=== PATIENT | female | born 1975 | race Caucasian/White ===

== ENCOUNTER 2017-11-21 18:27 | Emergency (ER) | payer SELFPAY ==
[2017-11-21 18:28] VITALS: BP 155/85; PULSE 87; RESP 16; TEMP 36.8; O2SAT 97; BMI 26.6
--- NOTE | 2017-11-21 18:39 | ED.DCSUM_ITS ---
- ER Visit Summary Date of Service: 11/21/17 Chief Complaint: 42-year-old presents with 36 days of vaginal bleeding. She states that she was previously very regular but did have heavy menstrual periods never lasting longer than 6 days. She had a seemingly normal menstrual period 36 days ago but it has never resolved. She states that until a week ago it did improve markedly but never completely resolved. She has no pelvic pain at all and no lower back pain or urinary symptoms. No abdominal pain, weakness , lightheadedness, or other systemic symptoms. Denies previous similar symptoms. 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 Has any history of bleeding disorder. Physical Examination: Those are within normal limits. She does not appear pale. She is not in distress. Neck is supple. Heart tones are regular and without murmur. Lungs are clear bilaterally. Abdomen is soft and nontender. No flank tenderness. Normal cap refill. No rash. No petechiae. Test Results: HCG. Hemoglobin normal. Platelets normal. Emergency Department Course and Treatment: Labs unremarkable. Not anemic. Cervix closed on my female pit boss exam. No significant bleeding, only mild active bleeding. No clots. I discussed the case with Dr. Kamara who recommended progestin 5 mg 3 times daily with close follow-up at his office. Treatment Plan: Follow-up with INDUSTRIAL CONVEYOR BELT REPAIRER as soon as possible Disposition: Home stable condition Impression: Encounter abnormal vaginal bleeding This note was generated with [employer] dictation software. It may contain incorrect words, spelling, and punctuation that were not noted in review of the chart prior to signing ED Disposition - Plan for ED Patient: Chief Complaint: Vag Bleeding Instructions: ED Bleed Irregular Vaginal Referrals: Carlton Kamara MD [STAFF PHYSICIAN] - As soon as possible
[2017-11-21 18:54] LABS: Absolute Lymphocyte Count 2.87 X10^3/ul (0.83-4.51); Absolute Neutrophil Count 5.2 X10^3/uL (2.0-7.7); Basophil# 0.07 X10^3/uL; Basophil% 0.8 % (0-1); Eosinophil# 0.56 X10^3/uL; Eosinophils% 6.1 % (0-5); Hematocrit 37.8 % (37-47); Hemoglobin 12.8 g/dl (12.0-15.0); Lymphocyte # 2.87 X10^3/ul (4.0); Lymphocyte % 31.2 % (19-41); Mean Corp Hgb Conc 33.9 g/gl (32-36); Mean Corpuscular Hgb 31.1 pg (27.0-32.0); Mean Corpuscular Volume 91.7 fL (81-99); Mean Platelet Vol. 9.3 fl (6.2-12.0); Monocyte# 0.52 X10^3/uL; Monocyte% 5.7 % (0-10); Neutrophil # 5.17 X10^3/uL (2.7-7.7); Neutrophil % 56.1 % (47-70); Platelet Count 327 K/mm3 (150-450); RBC Distribution Width CV 13.4 % (11.6-14.6); RBC Distribution Width SD 44.7 fl (35.1-43.9); Red Blood Count 4.12 M/mm3 (4.2-5.4); White Blood Count 9.2 K/mm3 (4.4-11.0)
[2017-11-21 18:58] LABS: POSITIVE COUNT NO; POSITIVE DIFFERENTIAL NO; POSITIVE MORPHOLOGY NO
[2017-11-21 19:38] LABS: Pregnancy, Serum, hCG Quali. NEGATIVE Negative (0-9 Nonpreg)
[2017-11-21 20:12] VITALS: BP 128/81; PULSE 74; O2SAT 98
== END 2017-11-21 20:13 | disposition home or self-care (01) ==
PROVIDERS: Emergency Provider Emergency Medicine; Family Provider Physician Assistant; PCP Physician Assistant
DX: N93.9 Abnormal uterine and vaginal bleeding, unspecified (principal); I10 Essential (primary) hypertension
CPT/HCPCS: 84703; 85025; 99282

== ENCOUNTER 2019-02-03 10:01 | Emergency (ER) | payer SELFPAY ==
[2019-02-03 10:03] VITALS: BP 158/86; PULSE 89; RESP 16; TEMP 36.7; O2SAT 100; BMI 26.6
--- NOTE | 2019-02-03 10:23 | CT_ITS ---
STUDY: CT FACIAL BONES WITHOUT CONTRAST REASON FOR EXAM: Female, 43 years old. Left-sided facial swelling. RADIATION DOSAGE (If Supplied By Facility): CTDIvol = ( 29.38 ) mGy, DLP = ( 525.42 ) mGycm TECHNIQUE: The patient was scanned in a multi detector CT scanner. Sagittal and coronal images were reconstructed. Individualized dose optimization techniques were used for this CT. COMPARISON: None. FINDINGS: There is diffuse inhomogeneous enlargement of the left parotid gland. Small lymph nodes are seen in the posterior cervical region more prominent on the left side. Normal orbital red and orbital contents. Normal nasal bones and anterior nasal spine. Normal facial bones. There is no demonstrated fracture. Normal visualized paranasal sinuses. CT/Sinus/Facial Bone IMPRESSION: Diffuse inhomogeneous enlargement of the left parotid gland with evidence of bilateral cervical lymph nodes more prominent on the left side. An inflammatory process should be ruled. Electronically Signed: Alirio Cole, at 10:58 EDT , Service support ,
--- NOTE | 2019-02-03 10:27 | ED.VISSUMM ---
- ER Visit Summary Date of Service: 02/03/19 Chief Complaint: Facial swelling History of Present Illness: The patient is a 43 F who presents with left facial swelling that began this morning. Patient states she woke up and noted some swelling of her face. Patient states this got worse when she was eating breakfast. Patient describes the pain is dull. Patient states the swelling is over the left cheek and jaw area. Patient states nothing seemed to help it. Patient denies any fevers or chills. Patient denies any sore throat, difficulty swallowing, or difficulty breathing. Patient denies any chest pain. Patient denies any nausea or vomiting. Patient states she feels some pressure in her left ear like it needs to pop. Patient denies any ear pain however. Patient denies any changes in her hearing. Physical Examination: Vital signs are stable. Patient is afebrile. Patient is in no acute distress. Oral mucosa is pink and moist. Oropharynx is clear. Tympanic membranes are clear bilaterally. There is some tenderness and edema of the left parotid gland. Neck is supple. Trachea is midline. There is no JVD noted. Heart was regular rate and rhythm. Lungs are clear and equal bilaterally. Cranial nerves II through XII are intact. There are no focal motor or sensory deficits noted. Test Results: CT scan of the face and sinuses was obtained. There is enlargement of the left parotid gland with bilateral cervical lymph nodes that are more prominent on the left. Emergency Department Course and Treatment: Patient was advised of her results. Patient was advised that this is most likely a viral etiology. Patient was instructed to take Tylenol or ibuprofen as needed for any pain. Patient was instructed to follow-up with her primary care physician in 5 to 7 days for reevaluation. Patient understood and was agreeable with the plan. All questions were answered. Disposition: Discharge home Impression: 1. Left parotitis This note was generated with [employer] dictation software. It may contain incorrect words, spelling, and punctuation that were not noted in review of the chart prior to signing ED Disposition - Plan for ED Patient: Disposition: Home or Assisted Living Diagnosis: Parotitis Instructions: SALIVARY GLAND SWELLING, Unk Cause Referrals: NOT,DEFINED [NON-STAFF] - 5-7 Days
[2019-02-03 11:25] VITALS: BP 113/62; PULSE 71; RESP 15; O2SAT 98
== END 2019-02-03 11:28 | disposition home or self-care (01) ==
PROVIDERS: Emergency Provider Emergency Medicine; Family Provider Physician Assistant; PCP Physician Assistant
DX: K11.20 Sialoadenitis, unspecified (principal); I10 Essential (primary) hypertension; Z72.0 Tobacco use
CPT/HCPCS: 70486; 99282

== ENCOUNTER 2021-07-22 04:20 | Emergency (ER) | payer SELFPAY ==
[2021-07-22 04:21] VITALS: BP 169/86; PULSE 109; RESP 16; TEMP 36.1; O2SAT 96; BMI 33.7
--- NOTE | 2021-07-22 04:38 | EX.ED.VIS.EY ---
HPI History of Present Illness Chief Complaint: Eye Problem Narrative Narrative: Patient is a 46-year-old female who states she was around a bunch of children just 1 to 2 days ago. She states she awoke this morning with left eye redness irritation and discharge. She denies any trauma or change in vision. She denies any contact lens use. She states she is concerned she has pinkeye and secondary to this presents for evaluation. PFSH PFS Medical History no medical history Home Medications lisinopril [Prinivil] 5 mg PO DAILY 08/26/16 [History Last Taken 12/01/16] neomycin-polymyxin B-dexameth [Maxitrol] 2 drp LEFT EYE .qid 10 Days #5 ml 07/22/21 [Rx Last Taken Unknown] Allergy/AdvReac Type Severity Reaction Status Date / Time rifampin Allergy Itching Verified 07/22/21 04:24 Social History Smoking Status: Current some day smoker tobacco type: cigarettes ROS ROS ED Constitutional Constitutional ED: Denies chills or fever(s) Eyes Eyes: Reports other Details: Positive eye redness and discharge on left ; Denies blurry vision or change in vision ENT ENT ED: Denies sore throat Cardiovascular Cardiovascular: Denies chest pain Respiratory/Chest Respiratory/Chest: Denies cough or dyspnea Gastrointestinal Gastrointestinal: Denies abdominal pain, diarrhea, nausea or vomiting Genitourinary Genitourinary ED: Denies dysuria Musculoskeletal Musculoskeletal: Denies myalgias Integumentary Denies rash Neurologic Neurologic: Denies headache(s) Hematologic/Lymphatic Hematologic/Lymphatic: Denies easy bleeding or easy bruising EXAM Physical Exam Const Vital Signs: 07/22/21 04:21 Temperature 96.9 F L Temperature Source Temporal Pulse Rate 109 H Respiratory Rate 16 Blood Pressure 169/86 H Blood Pressure Mean 113 Pulse Ox 96 Oxygen Delivery Method Room Air Positive well nourished and well developed General Appearance ED: well developed HEENT Reports moist mucous membranes Eyes PERRL and EOMs intact bilaterally Eyes Narrative: Pupils are equal reactive to light and accommodation extraocular muscles are intact. There is scleral injection noted to the left with conjunctival fullness and mild discharge present. No retained foreign body or obvious corneal abrasion. Neck supple Resp normal respiratory effort and clear to auscultation bilaterally Cardio regular rate and regular rhythm GI non-tender and non-distended Auscultation: normoactive bowel sounds Palpation: soft Extremity normal to inspection Neuro oriented x3 and CN's II-XII intact bilaterally Sensorium / Orientation: alert Psych mental status grossly normal Skin no rashes or lesions noted Lesions: no lesions Rashes: no rashes MDM MDM MDM Narrative Medical decision making narrative: Patient presented to the ER with no report or signs of trauma. She does not wear contact lens use. She does have scleral injection with conjunctival fullness and discharge concerning for viral versus bacterial conjunctivitis. At this time I will place her on Maxitrol eyedrops to cover for possible bacterial infection because of her exposure to young children but as there is no obvious signs of systemic infection or globe injury she is safe for discharge. Discharge Plan Triage Chief Complaint: Eye Problem ED Provider: Ino Tracey Dx/Rx/DC Orders Clinical Impression: Conjunctivitis Instructions: ED Conjunctivitis, Nonspecific Prescriptions: New neomycin-polymyxin B-dexameth [Maxitrol] 3.5mg/mL-10,000 unit/mL-0.1 % drops,suspension 2 drp LEFT EYE .qid 10 Days Qty: 5 RF: 0 No Action lisinopril [Prinivil] 5 MG tablet 5 mg PO DAILY RF: 0 Primary Care Provider: Jacob Lujan Referrals: Jacob Lujan, PA [Primary Care Provider] - Disposition Disposition: Home, Self Care
[2021-07-22] MEDS: Neomycin/Polymyxin/Dexameth 5ML OPTH.BTL 2 DRP LEFT EYE (04:56)
== END 2021-07-22 04:57 | disposition home or self-care (01) ==
PROVIDERS: Emergency Provider Emergency Medicine; PCP Physician Assistant; Visit Provider Emergency Medicine
DX: H10.9 Unspecified conjunctivitis (principal); F17.210 Nicotine dependence, cigarettes, uncomplicated
CPT/HCPCS: 99283

== ENCOUNTER 2023-04-23 08:29 | Emergency (ER) | payer MEDICAID, SELFPAY ==
[2023-04-23 08:30] VITALS: BP 147/92; PULSE 96; RESP 14; TEMP 36.7; O2SAT 100; BMI 29.9
--- NOTE | 2023-04-23 09:04 | ED.VIS.FEGU ---
HPI HPI - Female History of Present Illness Chief Complaint: Vag Bleeding Bleeding Issue: Positive for Vaginal bleeding and Passing clots Onset: Days (16) Timing: Continuous Current Severity: Heavy Maximum Severity: Heavy Associated Symptoms Associated Symptoms: Negative for Dysuria or Frequency Narrative Narrative: Patient presents with vaginal bleeding for the past 16 days. Patient states she has been passing some clots at times. Patient states it has been constant for the past 16 days. Patient admits to some occasional intermittent cramping. Patient denies any nausea or vomiting. Patient denies any dysuria or hematuria. Patient denies any abnormal vaginal discharge. Patient states nothing makes it better and nothing makes it worse. Patient states she does not currently see a acoustical tile patternmaker. [facility] Medical History (Updated 04/23/23 @ 10:[address] Sami Liang DO) Hypertension Tobacco use disorder Home Medications lisinopril 5 mg tablet (Prinivil) 5 mg PO DAILY 08/26/16 [History Last Taken 12/01/16] bpknniik-ggynhlmge-awsztmar 3.5 mg/mL-10,000 unit/mL-0.1% eye drops (Maxitrol) 2 drp LEFT EYE .qid 10 days #5 mL 07/22/21 [Rx Last Taken Unknown] norethindrone acetate 5 mg tablet 5 mg PO DAILY 5 days #5 tabs 04/23/23 [Rx Last Taken Unknown] Allergy/AdvReac Type Severity Reaction Status Date / Time rifampin Allergy Itching Verified 04/23/23 08:31 Surgical History no surgical history no surgical history Social History Smoking Status: Current some day smoker tobacco type: cigarettes ROS ROS ED Constitutional Constitutional ED: Denies chills or fever(s) Eyes Eyes: Denies blurry vision or change in vision ENT ENT ED: Denies rhinorrhea or sore throat Cardiovascular Cardiovascular: Denies chest pain or palpitations Respiratory/Chest Respiratory/Chest: Denies cough or dyspnea Gastrointestinal Gastrointestinal: Denies nausea or vomiting Genitourinary Genitourinary ED: Denies dysuria or hematuria Musculoskeletal Musculoskeletal: Denies back pain or neck pain Integumentary Denies abscess or rash Neurologic Neurologic: Denies headache(s) or weakness Allergic/Immunologic Allergic/Immunologic ED: Denies mouth swelling or urticaria EXAM Physical Exam Const Vital Signs: 10/16/23 08:30 Temperature 98.1 F Temperature Source Temporal Pulse Rate 96 Respiratory Rate 14 Blood Pressure 147/92 H Blood Pressure Mean 110 Pulse Ox 100 Oxygen Delivery Method Room Air Positive well nourished and well developed General Appearance ED: well developed and NAD HEENT Reports moist mucous membranes Neck supple and no JVD Resp normal respiratory effort and clear to auscultation bilaterally Cardio regular rate and regular rhythm GI soft to palpation, non-tender and non-distended Extremity full ROM Neuro oriented x3, CN's II-XII intact bilaterally and no sensory deficits noted Sensorium / Orientation: alert Motor Exam: strength 5/5 throughout Psych mental status grossly normal MDM MDM MDM Narrative Medical decision making narrative: Differential diagnosis includes anemia, coagulopathy, uterine fibroid, uterine cancer, , and menorrhagia. CBC will be obtained to assess for anemia and leukocytosis. Basic metabolic profile will be obtained to assess for electrolyte abnormality and renal function. Serum hCG will be obtained to assess for . PT with INR and PTT will be obtained to assess for coagulopathy. CT scan of the abdomen pelvis will be came to assess for uterine mass. Lab Data Attestation: I reviewed the patient's lab results. Lab results narrative: BolickCBC was reviewed and was within normal limits. Profile was reviewed. Glucose was elevated to 85. Anion gap was normal. Electrolytes were normal. PT with INR and PTT were reviewed and were within normal limits. Serum hCG was reviewed and was negative. Labs: Laboratory Results - last 24 hr 04/23/23 09:10 WBC 10.1 RBC 4.80 Hgb 14.8 Hct 43.5 MCV 90.6 MCH 30.8 MCHC 34.0 RDW Std Deviation 41.2 RDW Coeff of Inez 12.4 Plt Count 351 MPV 9.5 Immature Gran % (Auto) 0.400 Neut % (Auto) 69.6 Lymph % (Auto) 21.1 [place] % (Auto) 5.1 Eos % (Auto) 2.8 Baso % (Auto) 1.0 Absolute Neuts (auto) 7.0 Absolute Lymphs (auto) 2.13 Nucleated RBC % 0 PT 12.2 INR 0.9 APTT 25.5 Sodium 133 L Potassium 4.3 Chloride 102 Carbon Dioxide 26.0 Anion Gap 5 BUN 16 Creatinine 0.72 Estim Creat Clear Calc 86.92 Est GFR (MDRD) Af Amer 111 Est GFR (MDRD) Non-Af 92 BUN/Creatinine Ratio 22.1 H Glucose 285 H Calcium 9.0 Serum , Qual NEGATIVE Radiography Diagnostic Testing: Clinical Impression(s) from Imaging Studies Abdomen/Pelvis CT 04/23/23 09:11 IMPRESSION: 1. Hepatomegaly. 2. No focal acute inflammatory process. Electronically Signed: Carter Hernandez MD at 10:01 EDT , CT scan of the abdomen and pelvis was obtained. There is no acute abnormality noted. There are no uterine fibroids or uterine mass. This was interpreted by the radiologist and was also independently reviewed by myself. Treatment and Re-Evaluation Narrative: Smoking cessation was discussed. Patient was advised of her findings. Patient is feeling better on reevaluation. Patient was given a prescription for a short course of Aygestin. Patient was instructed to follow-up with AIR MOTOR REPAIRER in 5 to 7 days. Patient was instructed return if worse in any way. Patient understood and was agreeable with the plan. All questions were answered. Discharge Plan Triage Chief Complaint: Vag Bleeding ED Provider: Sami Liang Dx/Rx/DC Orders Clinical Impression: Menorrhagia, Tobacco use disorder Instructions: ED Heavy Menstrual Bleeding Prescriptions: New norethindrone acetate 5 mg tablet 5 mg PO DAILY 5 Days Qty: 5 0RF No Action lisinopril [Prinivil] 5 MG tablet 5 mg PO DAILY neomycin-polymyxin B-dexameth [Maxitrol] 3.5mg/mL-10,000 unit/mL-0.1 % drops,suspension 2 drp LEFT EYE .qid 10 Days Qty: 5 0RF Primary Care Provider: Care Physician,No Primary Referrals: Shantel Sorenson DO [Med Staff - Active Staff] - 5-7 Days Stoney Quinn MD [Med Staff - Active Staff] - 5-7 Days Jacob Lujan PA [Non-Staff] - 5-7 Days Disposition Disposition: Home, Self Care
--- NOTE | 2023-04-23 09:11 | CT_ITS ---
INDICATION: Pelvic pain EXAMINATION: CT ABDOMEN AND PELVIS WITHOUT CONTRAST - CT Abdomen And Pelvis W/O Contrast Injection TECHNIQUE: Helically acquired images were obtained of the abdomen and pelvis without oral or IV contrast. A radiation dose optimization technique was used for this scan. IV Contrast dosage and agent: None. Oral contrast: None. RADIATION DOSAGE (If Supplied By Facility): CTDIvol = ( 12.34 ) mGy, DLP = ( 601.29 ) mGycm COMPARISON: No relevant prior comparison study available FINDINGS: LOWER CHEST: Lung bases are clear. No cardiomegaly or pericardial effusion. LIVER: Hepatomegaly. Focal lesion is seen on this exam without contrast. GALLBLADDER AND BILIARY TREE: No calcified gallstones. No gallbladder distension or wall edema. No intra- or extrahepatic biliary ductal dilation. PANCREAS: No focal cystic or solid mass. SPLEEN: Normal size without focal cystic or solid mass. ADRENAL GLANDS: No nodules. KIDNEYS AND URETERS: Normal renal size and position. No hydronephrosis. PERITONEUM: No ascites or free air. No other fluid collection. BOWEL: No evidence of acute appendicitis. No stomach or bowel distension. No focal inflammatory change. LYMPH NODES: No enlarged mesenteric or retroperitoneal lymph nodes. VESSELS: Aorta is non-dilated. URINARY BLADDER: Unremarkable. REPRODUCTIVE ORGANS: No pelvic masses. Tampon is seen in the cervix. ABDOMINAL WALL: Small umbilical hernia containing fat. BONES: No lytic or blastic abnormality. CT/Abdomen/Pelvis without Cont IMPRESSION: 1. Hepatomegaly. 2. No focal acute inflammatory process. Electronically Signed: Carter Hernandez MD at 10:01 EDT ,
[2023-04-23 09:21] LABS: Absolute Lymphocyte Count 2.13 X10^3/uL (0.83-4.51); Eosinophil# 0.28 X10^3/uL; Eosinophils% 2.8 % (0-5); Hematocrit 43.5 % (37-47); Hemoglobin 14.8 g/dL (12.0-15.0); Lymphocyte # 2.13 X10^3/ul (0.83-4.51); Lymphocyte % 21.1 % (19-41); Mean Corpuscular Hgb 30.8 pg (27.0-32.0); Mean Corpuscular Volume 90.6 fL (81-99); Mean Platelet Vol. 9.5 fl (6.2-12.0); Monocyte# 0.51 X10^3/uL; Monocyte% 5.1 % (0-10); NRBC Flagged by Analyzer 0 % (0-5); Neutrophil # 7.02 X10^3/uL (2.7-7.7); Neutrophil % 69.6 % (47-70); Platelet Count 351 K/mm3 (150-450); RBC Distribution Width CV 12.4 % (11.6-14.6); RBC Distribution Width SD 41.2 fl (35.1-43.9); White Blood Count 10.1 K/mm3 (4.4-11.0)
[2023-04-23 09:23] LABS: Internal QC Validated? YES +Cl - CLEAR BKGD; Pregnancy, Serum, hCG Quali. NEGATIVE Negative
[2023-04-23 09:27] LABS: Anion Gap 5 (5-15); BUN 16 mg/dL (7-18); BUN/Creat Ratio 22.1 RATIO (10-20); Chloride 102 mmol/L (98-107); Creatinine, Serum 0.72 mg/dL (0.55-1.02); EST Glomerular Filtration Rate 92 mL/min (>60); Est Glom Filt Rate - Afr Amer 111 mL/min (>60); Estimated Creatinine Clearance 86.92 ml/min; Glucose 285 mg/dL (74-106); Potassium 4.3 mmol/L (3.5-5.1); Sodium Level 133 mmol/L (136-145)
[2023-04-23 09:28] LABS: International Normalized Ratio 0.9; Prothrombin Time (Protime)PT. 12.2 SECONDS (11.7-14.9)
[2023-04-23 09:29] LABS: Partial Thromboplast Time 25.5 Seconds (24.1-36.2)
[2023-04-23 10:32] VITALS: RESP 16
== END 2023-04-23 10:34 | disposition home or self-care (01) ==
PROVIDERS: Emergency Provider Emergency Medicine; Visit Provider Emergency Medicine
DX: N92.0 Excessive and frequent menstruation with regular cycle (principal); F17.210 Nicotine dependence, cigarettes, uncomplicated
CPT/HCPCS: 74176; 80048; 84703; 85025; 85610; 85730; 99283; A4216

== ENCOUNTER → 2023-04-30 | Outpatient (CLI) | payer MEDICAID, SELFPAY ==
--- NOTE | 2023-04-30 12:05 | EMB_PTH ---
PATIENT: NEDRA LIZARRAGA LOC: [facility] U#:[id number] AGE/SX: 47/F ROOM: RE04/30/[address]: SHEYLA Fraga : 1975 BED: DIS: 04/30/2023 SPEC #: [id number] RECD: 04/30/23 15:16 STATUS: HARPAL LUIS #: [id number] DEEJAY: 04/30/23 12:[address]: Ne Jacobson NP DEPT: SURGICAL PATHOLOGY RECD BY: Yesika Fontenot ENTERED: 05/01/23 08:47 SP TYPE: ENDOM BX/C GARRETT DR: No Primary Care Phys Tissues: Endometrium, NOS Procedures: Surgery Specimen Level IV HEADER OPERATION: Endometrial biopsy PRE-OP DIAGNOSIS: Abnormal uterine bleeding TISSUE SUBMITTED: Endometrial tissue MICROSCOPIC DIAGNOSIS Endometrium, biopsy: Simple hyperplasia without atypia in background of dyssynchronous endometrium. Focal benign stromal hyperplasia suggestive of exogenous hormone effect and with focal breakdown. Rare strips of benign squamous mucosa. AM:marissa 05/02/2023 COMMENT Case has been reviewed in consultation with Dr. Logan who concurs with the above diagnosis. IDC:BELINDA MICROSCOPIC DESCRIPTION Slides are reviewed. GROSS DESCRIPTION Received is one container labeled with the patient's name and not further designated. The specimen consists of multiple irregular fragments of pink soft tissue that in aggregate measure 3.0 x 2.5 x 0.3 cm. The specimen is totally submitted in one cassette. / BELINDA:marissa 05/01/2023 TC:5 CPT: 58965
[2023-05-04 12:08] LABS: HPV APTIMA, High Risk Negative (Negative)
== END | disposition home or self-care (01) ==
PROVIDERS: Referring Provider Nurse Practitioner Women's Health; Visit Provider Nurse Practitioner Women's Health
DX: N93.9 Abnormal uterine and vaginal bleeding, unspecified (principal); Z12.4 Encounter for screening for malignant neoplasm of cervix
CPT/HCPCS: 87624; 88175; 88305; G0145

== ENCOUNTER → 2023-05-08 | Outpatient (CLI) | payer MEDICAID, SELFPAY ==
--- NOTE | 2023-05-08 08:01 | US_ITS ---
STUDY: ULTRASOUND OF THE FEMALE PELVIS - COMPLETE REASON FOR EXAM: Female, 47 years old. Bleeding LMP: April 11, 2023. TECHNIQUE: Transabdominal and Transvaginal TECHNICAL QUALITY: Adequate. COMPARISON: None. FINDINGS: The uterus is anteverted and is in a midline position. The uterus measures 9.3 cm x 6.4 cm x 5.7 cm. Normal uterine cervix. The endometrium measures 11.7 mm in thickness, and is fluid distended. Findings suggestive of a 1.2 cm x 0.7 cm x 0.8 cm polyp. Increased vascularity is seen. Heterogeneous appearance of the myometrium although no focal fibroids are seen. I.U.D. - The patient does not have an I.U.D. The right ovary is visualized. The right ovary measures 2.2 cm x 1.6 x 1.5 cm. There is no right ovarian cyst or ovarian mass. There is no visualized right adnexal mass or complex lesion. There is normal arterial and normal venous vascularity. The left ovary is visualized. The left ovary measures 2.9 cm x 1.9 cm x 2.5 cm. There is no left ovarian cyst or ovarian mass. There is no visualized left adnexal mass or complex lesion. There is normal arterial and normal venous vascularity. There is no fluid in the cul-de-sac. The pre void volume of the bladder was 126 ml. US/Pelvic (Non ) IMPRESSION: Fluid distention of the endometrium with possible polyp. Heterogeneous appearance of the myometrium with no focal fibroid seen. Electronically Signed: Alirio Cole MD at 14:20 EDT ,
== END | disposition home or self-care (01) ==
PROVIDERS: Referring Provider Nurse Practitioner Women's Health; Visit Provider Nurse Practitioner Women's Health
DX: N92.0 Excessive and frequent menstruation with regular cycle (principal)
CPT/HCPCS: 76830; 76856

== ENCOUNTER 2023-07-31 08:21 | Day surgery (SDC) | payer MEDICAID, SELFPAY ==
--- OUTSIDE RECORDS SUMMARY | 2023-07-31 08:52 | XMS RPT_ITS | CCD ---
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 Medications Current Medications Medication Drug Class(es) Dates Sig (Normalized) Sig (Original) amoxicillin 875 mg oral tablet (1 source) Penicillin-class Antibacterial Start: 05-17-2023 End: 05-27-2023 take 1 tablet by mouth twice daily amoxicillin (AMOXIL) 875 mg tablet Take 1 tablet by mouth two times a day for 10 days. 20 tablet 0 05/17/2023 05/27/2023 Active Completed/Discontinued Medications Medication Drug Class(es) Dates Sig (Normalized) Sig (Original) benzonatate 100 mg oral capsule (3 sources) Non-narcotic Antitussive Start: 04-27-2022 take 1 capsule by mouth every eight hours as needed benzonatate (TESSALON PERLES) 100 mg capsule Take 1 capsule by mouth three times daily as needed for cough. 21 capsule 0 04/27/2022 Active Problems Active Problems Problem Classification Problem Date Documented Da te Episodic/Chronic Administrative/social admission (1 source) Repeated prescription; Translations: [Encounter for issue of repeat prescription] Episodic Disorders of teeth and jaw (1 source) Toothache; Translations: [Other specified disorders of teeth and supporting structures] 05-17-2023 Episodic Essential hypertension (4 sources) Essential hypertension; Translations: [Essential (primary) hypertension] Onset: 09-15-2016 09-15-2016 Chronic Immunizations and screening for infectious disease (1 source) Contact with or exposure to other viral diseases; Translations: [Exposure to COVID-19 virus] Episodic Other lower respiratory disease (1 source) Cough; Translations: [Acute cough] Episodic Other upper respiratory infections (1 source) Acute upper respiratory infection; Translations: [Acute upper respiratory infection, unspecified] Episodic Past or Other Problems Problem Classification Problem Date Documented Da te Episodic/Chronic Diabetes mellitus without complication (4 sources) Hyperglycemia; Translations: [Hyperglycemia, unspecified] Onset: 11-29-2017 11-29-2017 Episodic Results Test Name Value Interpretation Reference Range Facil ity Vital Signs Date Time Vital Sign Value Performing Clinician Faci lity 05-17-2023 11:59-0500 Body temperature 98.01 [degF] Nikky Athy PA-C Work Phone: [facility] 05-17-2023 11:59-0500 Body weight 85.46 kg Nikky Athy PA-C Work Phone: [facility] 05-17-2023 11:59-0500 Diastolic blood pressure 80 mm[Hg] Nikky Athy PA-C Work Phone: [facility] 05-17-2023 11:59-0500 Heart rate 96 /min Nikky Athy PA-C Work Phone: [facility] 05-17-2023 11:59-0500 Respiratory rate 16 /min Nikky Athy PA-C Work Phone: [facility] 05-17-2023 11:59-0500 SaO2% (BldA) [Mass fraction] 98 % Nikky Athy PA-C Work Phone: [facility] 05-17-2023 11:59-0500 Systolic blood pressure 138 mm[Hg] Nikky Athy PA-C Work Phone: [facility] 04-27-2022 12:42-0400 Body temperature 98.6 [degF] Ora Anderson MANAGER [employer].MANAGER ELECTRICAL Work Phone: [facility] 04-27-2022 12:42-0400 Body weight 83.28 kg Ora Anderson MANAGER [employer].MANAGER ELECTRICAL Work Phone: [facility] 04-27-2022 12:42-0400 Diastolic blood pressure 84 mm[Hg] Ora Anderson MANAGER [employer].MANAGER ELECTRICAL Work Phone: [facility] 04-27-2022 12:42-0400 Heart rate 118 /min Ora Anderson MANAGER [employer].MANAGER ELECTRICAL Work Phone: [facility] 04-27-2022 12:42-0400 Respiratory rate 18 /min Oraadryan Anderson MANAGER [employer].MANAGER ELECTRICAL Work Phone: [facility] 04-27-2022 12:42-0400 SaO2% (BldA) [Mass fraction] 98 % Ora Anderson MANAGER [employer].MANAGER ELECTRICAL Work Phone: [facility] 04-27-2022 12:42-0400 Systolic blood pressure 142 mm[Hg] Ora Anderson MANAGER [employer].MANAGER ELECTRICAL Work Phone: [facility] Encounters Encounter Date Encounter Type Care Provider Facility Start: 06-25-2023 End: 06-25-2023 ambulatory Facility:[facility] Start: 05-17-2023 End: 05-17-2023 ambulatory Facility:[facility] Start: 05-17-2023 End: 05-17-2023 Patient encounter procedure Nikky Lr PA-C Work Phone: [facility] Procedures Date Procedure Procedure Detail Performing Clinician Start: 10-28-2016 Lipid 1996 panel - S ene or Plasma Nikky Lr PA-C Work Phone: Start: 09-15-2016 Adult depression screening assessment Yaa Hreman APRN.MANAGER ELECTRICAL Work Phone: Plan of Treatment Date Care Activity Detail Author Start: 11-01-2026 Urine microalbumin profile [facility] Start: 03-09-2023 Influenza vaccination Influenza Vaccine (#1) [facility] Start: 11-27-2022 HPV TESTING HPV TESTING [facility] Start: 11-27-2022 PAP TESTING PAP TESTING [facility] Start: 10-06-2022 BP CONTROLLED (<130/80) BP CONTROLLED (<130/80) [facility] in Start: 07-09-2022 Depression Assessment Depression Assessment [facility] Start: 04-27-2022 End: 05-11-2022 Influenza virus A and B RNA and SARS-CoV-2 (COVID-19) N gene panel - Respiratory specimen by DAYLIN with probe detection COVID WITH FLUA+B, ROUTINE Microbiology Routine Acute cough Exposure to COVID-19 virus Expected: 04/27/2022, Expires: 05/11/2022 [facility] Work Phone: Immunizations Immunization Date Immunization Notes Care Provider Giorgi benitez 11-01-2016 pneumococcal polysaccharide vaccine, 23 valent Ora Anderson MANAGER [employer].MANAGER ELECTRICAL Work Phone: [facility] Work Phone: 11-01-2016 tetanus toxoid, redu divya diphtheria toxoid, and acellular pertussis vaccine, adsorbed Yaa Herman MANAGER [employer].MANAGER [employer]LECTRICAL Work Phone: [facility] Work Phone: Payers Date Payer Category Payer Medicaid [id number] 2021 Medicaid [facility] MEDICA[facility] [id number] 2021-Present [phone] [address] [place] [address] Medicaid [id number] 2021 Medicaid [id number] Social History Date Type Detail Facility Start: 08-18-2016 End: 04-27-2022 Tobacco smoking status NHIS Smokes tobacco daily [facility] Work Phone: History of tobacco use Cigarette Smoker [facility] Work Phone: Start: 08-18-2016 End: 06-15-2020 Cigarettes smoked current (pack per day) - Reported [address] [facility] Start: 08-18-2016 End: 04-27-2022 Tobacco use and exposure Smokeless tobacco non-user [facility] Work Phone: Start: 10-06-2021 End: 11-09-2023 Alcohol intake Current non-drinker of alcohol (finding) [facility] Start: 1975 Sex Assigned At Not on file [facility] Start: 09-26-2021 End: 10-06-2021 Exposure to SARS-CoV-2 (event) Not sure [facility] Work Phone: Start: 06-15-2020 End: 05-17-2023 Tobacco use panel [facility] National Score (1-10 0), lower number is lower risk Not on file [facility] Progress note 06-25-2023 Note Date & Type Note Facility 06-25-2023 Note HNO ID: [id number] Author: Ora Anderson APRN.MANAGER ELECTRICAL Service: ? Author Type: Nurse Practitioner Type: Progress Notes Filed: 06/25/2023 1:10 PM Note Text: This note was created using [email or web address]. Subjective Aura Tran is a 47 year old female. 47 year old female with PMH HTN (not on medicines) presents for dental pain. Acute on chronic Left upper States a few month ago she was biting into something +cracked tooth +sensitivity to hot and cold +pain with chewing Denies inability to open or close Endorses she has not been able to seek definitive care as she is waiting for her insurance to be active +tobaco smoker The history is provided by the patient. No signal mechanic was used. Dental Problem This is a recurrent problem. The current episode started more than 1 month ago. The problem occurs constantly. The problem has been gradually worsening. Pertinent negatives include no abdominal pain, anorexia, arthralgias, change in bowel habit, chest pain, chills, congestion, coughing, diaphoresis, fatigue, fever, headaches, joint swelling, myalgias, nausea, neck pain, numbness, rash, sore throat, swollen glands, urinary symptoms, vertigo, visual change, vomiting or weakness. Exacerbated by: eating, chewing. She has tried nothing for the symptoms. The treatment provided no relief. PAST MEDICAL HISTORY Diagnosis Date Encounter for insertion of mirena IUD 12/13/2017 heavy menstrual bleeding Hypertension PAST SURGICAL HISTORY Procedure Laterality Date SECTION HX TONSILLECTOMY HX ALLERGIES Rifampin MEDICATIONS lisinopril (ZESTRIL, PRINIVIL) 10 mg tablet Take 1 tablet by mouth once daily. amoxicillin-clavulanate potassium (AUGMENTIN) 875-125 mg per tablet Take 1 tablet by mouth two times a day for 7 days. benzonatate (TESSALON PERLES) 100 mg capsule Take 1 capsule by mouth three times daily as needed for cough. (Patient not taking: Reported on 05/17/2023) FAMILY HISTORY Problem Relation Age of Onset Diabetes Mother Stroke Mother Diabetes Father Stroke Father Social History Tobacco Use Smoking status: Every Day Packs/day: 1.00 Years: 22.00 Additional pack years: 0.00 Total pack years: 22.00 Types: Cigarettes Smokeless tobacco: Never Substance Use Topics Alcohol use: No Drug use: Never Review of Systems Constitutional: Negative for chills, diaphoresis, fatigue and fever. HENT: Positive for dental problem. Negative for congestion, rhinorrhea, sinus pressure, sinus pain and sore throat. Eyes: Negative for pain, discharge, redness and itching. Respiratory: Negative for apnea, cough and chest tightness. Cardiovascular: Negative for chest pain. Gastrointestinal: Negative for abdominal pain, anorexia, change in bowel habit, nausea and vomiting. Musculoskeletal: Negative for arthralgias, joint swelling, myalgias and neck pain. Skin: Negative for color change, pallor and rash. Allergic/Immunologic: Negative for environmental allergies, food allergies and immunocompromised state. Neurological: Negative for dizziness, vertigo, facial asymmetry, weakness, numbness and headaches. Hematological: Negative for adenopathy. Does not bruise/bleed easily. Psychiatric/Behavioral: Negative for agitation and behavioral problems. Objective BP 122/80 Pulse 102 Temp 36.4 ?C (97.6 ?F) Resp 16 Wt 83.5 kg (184 lb) LMP 11/01/2016 SpO2 99% BMI 29.96 kg/m? Physical Exam Vitals and nursing note reviewed. Constitutional: General: She is not in acute distress. Appearance: Normal appearance. She is normal weight. She is not ill-appearing, toxic-appearing or diaphoretic. HENT: Head: Normocephalic and atraumatic. Right Ear: Ear canal and external ear normal. Left Ear: Ear canal and external ear normal. Nose: Nose normal. No congestion or rhinorrhea. Mouth/Throat: Mouth: Mucous membranes are moist. Pharynx: No oropharyngeal exudate or posterior oropharyngeal erythema. Eyes: General: Right eye: No discharge. Left eye: No discharge. Extraocular Movements: Extraocular movements intact. Conjunctiva/sclera: Conjunctivae normal. Pupils: Pupils are equal, round, and reactive to light. Cardiovascular: Rate and Rhythm: Normal rate and regular rhythm. Pulses: Normal pulses. Heart sounds: Normal heart sounds. No murmur heard. No friction rub. Pulmonary: Effort: Pulmonary effort is normal. No respiratory distress. Breath sounds: Normal breath sounds. No stridor. No wheezing, rhonchi or rales. Chest: Chest wall: No tenderness. Abdominal: General: Abdomen is flat. There is no distension. Palpations: Abdomen is soft. There is no mass. Tenderness: There is no abdominal tenderness. There is no right CVA tenderness, left CVA tenderness, guarding or rebound. Hernia: No hernia is present. Musculoskeletal: General: No swelling, tenderness, deformity or signs of injury. Normal range of motion. Cervi (more content not included)... [facility] Progress note 05-17-2023 Note Date & Type Note Facility 05-17-2023 Note HNO ID: [id number] Author: Nikky Lr PA-C Service: ? Author Type: Physician Roof Painter Type: Progress Notes Filed: 05/17/2023 12:34 PM Note Text: This note was created using [email or web address]. Subjective Aura Tran is a 47 year old female. HPI Patient presents with dental pain for 3 days. She has a broken tooth and she thinks it is infected. She does not have dental insurance until June 08. She has had some facial swelling starting today. She has been trying Tylenol [id number]. No fever or chills. No drainage from the tooth. Review of Systems HENT: Positive for dental problem. Respiratory: Negative. Cardiovascular: Negative. Gastrointestinal: Negative. Genitourinary: Negative. Musculoskeletal: Negative. All other systems reviewed and are negative. PAST MEDICAL HISTORY Diagnosis Date Encounter for insertion of mirena IUD 12/13/2017 heavy menstrual bleeding Hypertension Current Outpatient Medications Medication Sig Dispense Refill lisinopril (ZESTRIL, PRINIVIL) 10 mg tablet Take 1 tablet by mouth once daily. 30 tablet 0 amoxicillin (AMOXIL) 875 mg tablet Take 1 tablet by mouth two times a day for 10 days. 20 tablet 0 benzonatate (TESSALON PERLES) 100 mg capsule Take 1 capsule by mouth three times daily as needed for cough. (Patient not taking: Reported on 05/17/2023) 21 capsule 0 No current facility-administered medications for this visit. PAST SURGICAL HISTORY Procedure Laterality Date SECTION HX TONSILLECTOMY HX FAMILY HISTORY Problem Relation Age of Onset Diabetes Mother Stroke Mother Diabetes Father Stroke Father Social History Tobacco Use Smoking status: Every Day Packs/day: 1.00 Years: 22.00 Additional pack years: 0.00 Total pack years: 22.00 Types: Cigarettes Smokeless tobacco: Never Substance Use Topics Alcohol use: No Drug use: Never Objective BP 138/80 Pulse 96 Temp 36.7 ?C (98 ?F) Resp 16 Wt 85.5 kg (188 lb 6.4 oz) LMP 11/01/2016 SpO2 98% BMI 30.68 kg/m? Physical Exam Vitals reviewed. Constitutional: Appearance: Normal appearance. HENT: Head: Normocephalic and atraumatic. Mouth/Throat: Comments: Patient has broken tooth on the left upper gumline as indicated above. Some mild gumline swelling. Some overlying facial swelling. No sign of drainable abscess. No trismus. Skin: General: Skin is warm and dry. Neurological: General: No focal deficit present. Mental Status: She is alert and oriented to person, place, and time. Assessment and Plan ASSESSMENT/PLAN: 1. Pain, dental - ICD9: 525.9, ICD10: K08.89 We will treat with amoxicillin. Follow-up with dentist. Nikky Lr PA-C [facility] History of Present illness Narrative 05-17-2023 Nikky Lr PA-C - 05/17/2023 12:31 PM EST Note Date & Type Note Facility 05-17-2023 History of Presen t illness Narrative Images from the original note were not included. This note was created using [email or web address]. Subjective Aura Tran is a 47 year old female. HPI Patient presents with dental pain for 3 days. She has a broken tooth and she thinks it is infected. She does not have dental insurance until June 08. She has had some facial swelling starting today. She has been trying Tylenol [id number]. No fever or chills. No drainage from the tooth. Review of Systems HENT: Positive for dental problem. Respiratory: Negative. Cardiovascular: Negative. Gastrointestinal: Negative. Genitourinary: Negative. Musculoskeletal: Negative. All other systems reviewed and are negative. PAST MEDICAL HISTORY Diagnosis Date Encounter for insertion of mirena IUD 12/13/2017 heavy menstrual bleeding Hypertension Current Outpatient Medications Medication Sig Dispense Refill lisinopril (ZESTRIL, PRINIVIL) 10 mg tablet Take 1 tablet by mouth once daily. 30 tablet 0 amoxicillin (AMOXIL) 875 mg tablet Take 1 tablet by mouth two times a day for 10 days. 20 tablet 0 benzonatate (TESSALON PERLES) 100 mg capsule Take 1 capsule by mouth three times daily as needed for cough. (Patient not taking: Reported on 05/17/2023) 21 capsule 0 No current facility-administered medications for this visit. PAST SURGICAL HISTORY Procedure Laterality Date SECTION HX TONSILLECTOMY HX FAMILY HISTORY Problem Relation Age of Onset Diabetes Mother Stroke Mother Diabetes Father Stroke Father Social History Tobacco Use Smoking status: Every Day Packs/day: 1.00 Years: 22.00 Additional pack years: 0.00 Total pack years: 22.00 Types: Cigarettes Smokeless tobacco: Never Substance Use Topics Alcohol use: No Drug use: Never Objective BP 138/80 Pulse 96 Temp 36.7 C (98 F) Resp 16 Wt 85.5 kg (188 lb 6.4 oz) LMP 11/01/2016 SpO2 98% BMI 30.68 kg/m Physical Exam Vitals reviewed. Constitutional: Appearance: Normal appearance. HENT: Head: Normocephalic and atraumatic. Mouth/Throat: Comments: Patient has broken tooth on the left upper gumline as indicated above. Some mild gumline swelling. Some overlying facial swelling. No sign of drainable abscess. No trismus. Skin: General: Skin is warm and dry. Neurological: General: No focal deficit present. Mental Status: She is alert and oriented to person, place, and time. Assessment and Plan ASSESSMENT/PLAN: 1. Pain, dental - ICD9: 525.9, ICD10: K08.89 We will treat with amoxicillin. Follow-up with dentist. Nikky Lr PA-C documented in this encounter [facility] Instructions 04-27-2022 Patient Instructions Note Date & Type Note Facility 04-27-2022 Instructions Ora Anderson APRN.MANAGER ELECTRICAL - 04/27/2022 1:10 PM EDT Acute cough (primary encounter diagnosis) Exposure to covid-19 virus You have been diagnosed with an illness caused by a virus. Antibiotics do not cure viral infections. If given when not needed, antibiotics can be harmful. The treatments described below will help you feel better while your body's own defenses are fighting the virus. General Instructions: Drink extra water and juice. Use a cool mist vaporizer or saline nasal spray to relieve congestion. For Sore throats, use ice chips or sore throat spray; lozenges for older children and adults. Specific Medications: Fever, aches, ear pain: Use medicines according to the package instructions or as directed by your healthcare provider. Stop the medication when the symptoms get better. No follow-ups on file. COUGH: Your doctor wants you to have this information about coughing. The body has a cough reflex which helps expel mucous secretions and irritants from the lung and airway passages. Cough spasms are periods of continuous coughing lasting several minutes. Most coughs is caused by virus infections which may last for up to 2-3 weeks. Coughing helps to protect the lung from pneumonia. A persistent cough lasting longer than 4-6 weeks requires medical evaluation by your primary care doctor. Treatment of cough includes measures to loosen the cough and thin the mucous. Warm liquids, cough drops, and nonprescription cough medicine may help reduce dry hacking cough. Use a humidifier if necessary as dry air can make coughs worse. Ultrasonic humidifiers are especially useful as they kill molds and many bacteria. Some cough medicines have antihistamines, decongestants, or alcohol in them; there is no proof that any of these help control cough. Prescription cough medicine or those with dextromethorphan (DM) should be reserved for dry coughs that prevent sleep or cause spasms or chest pain. Avoid any exposure to cigarette smoke as this will worsen the cough or make it last much longer. Call your doctor right away if you or your child have increased breathing difficulty, a high fever, a cough that lasts longer than 3 weeks, or other serious complaints. documented in this encounter [facility] History of Present illness Narrative 04-27-2022 Ora Anderson APRN.CNP - 04/27/2022 1:04 PM EDT Note Date & Type Note Facility 04-27-2022 History of Presen t illness Narrative This note was created using [email or web address]. Subjective Aura Tran is a 46 year old female. 46 year old female with HTN presents for illness. Acute onset Sunday States +body aches +cough +fever +congestion +rhinorrhea Denies hemoptysis. Denies CP. Denies SOB Endorses + exposure with ill coworkers over the past week. She works at [employer] +tobacco usage Denies using homeopathic States she called off work today. Patient also requesting a refill on her Lisinopril It's been a minute since I have been on it The history is provided by the patient. No signal mechanic was used. Cough This is a new problem. The current episode started more than 2 days ago. The problem occurs constantly. The problem has not changed since onset.The cough is Non-productive. The maximum temperature recorded prior to her arrival was 100 to 100.9 F. Associated symptoms include chills, ear congestion, headaches, rhinorrhea, sore throat, myalgias and wheezing. Pertinent negatives include no chest pain, no sweats, no weight loss, no ear pain, no shortness of breath and no eye redness. She has tried nothing for the symptoms. She is a smoker. Her past medical history does not include bronchitis, pneumonia, bronchiectasis, COPD, emphysema or asthma. PAST MEDICAL HISTORY Diagnosis Date Encounter for insertion of mirena IUD 12/13/2017 heavy menstrual bleeding Hypertension PAST SURGICAL HISTORY Procedure Laterality Date SECTION HX TONSILLECTOMY HX ALLERGIES Rifampin MEDICATIONS lisinopril (ZESTRIL, PRINIVIL) 10 mg tablet Take 1 tablet by mouth once daily. (Patient not taking: Reported on 10/06/2021 ) FAMILY HISTORY Problem Relation Age of Onset Diabetes Mother Stroke Mother Diabetes Father Stroke Father Social History Tobacco Use Smoking status: Every Day Packs/day: 1.00 Years: 22.00 Pack years: 22.00 Types: Cigarettes Smokeless tobacco: Never Substance Use Topics Alcohol use: No Drug use: Never Review of Systems Constitutional: Positive for chills, diaphoresis, fatigue and fever. Negative for weight loss. HENT: Positive for congestion, rhinorrhea and sore throat. Negative for ear pain. Eyes: Negative for pain, discharge, redness and itching. Respiratory: Positive for cough and wheezing. Negative for apnea, choking, chest tightness and shortness of breath. Cardiovascular: Negative for chest pain, palpitations and leg swelling. Gastrointestinal: Negative for abdominal pain, diarrhea, nausea and vomiting. Musculoskeletal: Positive for myalgias. Negative for arthralgias and back pain. Skin: Negative for color change, pallor, rash and wound. Allergic/Immunologic: Negative for environmental allergies, food allergies and immunocompromised state. Neurological: Positive for headaches. Negative for dizziness and facial asymmetry. Hematological: Negative for adenopathy. Does not bruise/bleed easily. Psychiatric/Behavioral: Negative for agitation and behavioral problems. Objective BP 142/84 Pulse 118 Temp 37 C (98.6 F) (Tympanic) Resp 18 Wt 83.3 kg (183 lb 9.6 oz) LMP 11/01/2016 SpO2 98% BMI 29.90 kg/m Physical Exam Vitals and nursing note reviewed. Constitutional: General: She is not in acute distress. Appearance: Normal appearance. She is normal weight. She is not ill-appearing, toxic-appearing or diaphoretic. HENT: Head: Normocephalic and atraumatic. Right Ear: Ear canal and external ear normal. Left Ear: Ear canal and external ear normal. Nose: Nose normal. No congestion or rhinorrhea. Mouth/Throat: Mouth: Mucous membranes are moist. Pharynx: No oropharyngeal exudate or posterior oropharyngeal erythema. Eyes: General: Right eye: No discharge. Left eye: No discharge. Extraocular Movements: Extraocular movements intact. Conjunctiva/sclera: Conjunctivae normal. Pupils: Pupils are equal, round, and reactive to light. Cardiovascular: Rate and Rhythm: Normal rate and regular rhythm. Pulses: Normal pulses. Heart sounds: Normal heart sounds. No murmur heard. No friction rub. Pulmonary: Effort: Pulmonary effort is normal. No respiratory distress. Breath sounds: Normal breath sounds. No stridor. No wheezing, rhonchi or rales. Chest: Chest wall: No tenderness. Abdominal: General: Abdomen is flat. There is no distension. Palpations: Abdomen is soft. There is no mass. Tenderness: There is no abdominal tenderness. There is no right CVA tenderness, left CVA tenderness, guarding or rebound. Hernia: No hernia is present. Musculoskeletal: General: No swelling, tenderness, deformity or signs of injury. Normal range of motion. Cervical back: Normal range of motion and neck supple. No rigidity. Right lower leg: No edema. Left lower leg: No edema. Lymphadenopathy: Cervical: No cervical adenopathy. Skin: General: Skin is warm and dry. Capillary Refill: Capillary refill takes less than 2 seconds. Coloration: Skin is not jaundiced or pale. Findings: No bruising, erythema, lesion or rash. Neurological: General: No focal deficit present. Mental Status: She is alert and oriented to person, place, and time. Cranial Nerves: No cranial nerve deficit. Sensory: No sensory deficit. Motor: No weakness. Coordination: Coordination normal. Gait: Gait normal. Psychiatric: Mood and Affect: Mood normal. Behavior: Behavior normal. Thought Content: Thought content normal. Judgment: Judgment normal. Assessment and Plan ASSESSMENT/PLAN: 1. Acute cough - ICD9: 786.2, ICD10: R05.1 (primary diagnosis) X 2 days Harsh Endorses + tobacco usage. - XR CHEST 2V FRONTAL/LAT-was going to obtain, but patient had a call from her [employer] She needed to leave and pick him up. Patient informed she can represent to have chest xray obtained later today or tomorrow. - COVID WITH FLUA+B, ROUTINE 2. Exposure to COVID-19 virus - ICD9: V01.79, ICD10: Z20.822 +ill contacts at work - XR CHEST 2V FRONTAL/LAT - COVID WITH FLUA+B, ROUTINE 3. URI, acute - ICD9: 465.9, ICD10: J06.9 - Discussed viral etiology and rationale for treatment. - Symptomatic treatment with prn analgesia - Supportive care with fluids and rest - RX Tessalon Perles and Prednisone taper 4. 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 Note 10-10-2021 Telephone Encounter - Lucille Breaux LPN - 10/10/2021 9:28 AM EDTTelephone Encounter - Yaa Herman APRN.CNP - 10/10/2021 7:11 AM EDT Note Date & Type Note Facility 10-10-2021 Miscellaneous Notes Patient returned call and went over notes below from urgent care provider with understanding. Left message for patient to return call. Antibiotic for her wound was changed to clindamycin 150 mg 3 capsules by mouth 4 times a day for 5 days. Follow up if wound get worse. Stop other antibiotics if any are left. documented in this encounter [facility] Evaluation note Note Date & Type Note Facility documented in this encounter [facility] Evaluation note Note Date & Type Note Facility documented in this encounter [facility] Health Concerns Infection Onset Date Last Indicated Resolved Time COVID-19 Rule-Out 04/27/2022 04/27/2022 Summary Purpose Family History No Family History Records Found Advance Directives No Advanced Directives Records Found Additional Source Comments Source Comments (unrecognize d section and content) In the event this informatio n is protected by the Federal Confidentiality of Alcohol and Drug Abuse Patient Records regulations: The Federal rules restrict any use of the information to criminally investigate or prosecute any alcohol or drug abuse patient[facility] the event this information is protected by the Federal Confidentiality of Alcohol and Drug Abuse Patient Records regulations: The Federal rules restrict any use of the information to criminally investigate or prosecute any alcohol or drug abuse patient.[facility] the event this information is protected by the Federal Confidentiality of Alcohol and Drug Abuse Patient Records regulations: The Federal rules restrict any use of the information to criminally investigate or prosecute any alcohol or drug abuse patient.[facility] the event this information is protected by the Federal Confidentiality of Alcohol and Drug Abuse Patient Records regulations: The Federal rules restrict any use of the information to criminally investigate or prosecute any alcohol or drug abuse patient.[facility] Reason for Visit (unrecogniz ed section and content) Reason Comments Cough Cough, fever, bodyac hes x 2 days Reason Comments Refill Request Reason Comments Dental Problem Toothpain for 3 days . INFORMATION SOURCE (unrecogn ized section and content) FOR RECORDS PERTAINING TO PATIENTS WHO ARE OR HAVE BEEN ENROLLED IN A CHEMICAL DEPENDENCY/SUBSTANCEABUSE PROGRAM, SOME INFORMATION MAY BE OMITTED. This clinical summary was aggregated from multiple sources. Caution should be exercised in using it in the provision of clinical care. This summary normalizes information from multiple sources, and as a consequence, information in this document may materially change the coding, format and clinical context of patient data. In addition, data may be omitted in some cases. CLINICAL DECISIONS SHOULD BE BASED ON THE PRIMARY CLINICAL RECORDS. [facility] [facility]. provides no warranty or guarantee of the accuracy or completeness of information in this document.
[2023-07-31 08:58] LABS: Internal QC Validated? YES +Cl - CLEAR BKGD; Pregnancy, Urine Negative Negative
[2023-07-31] MEDS: Lactated Ringers 1,000 ML 15 ML IV (09:07)
[2023-07-31 09:08] VITALS: BP 135/89; PULSE 104; RESP 16; TEMP 37.4; O2SAT 98; BMI 28.3
[2023-07-31 09:13] LABS: Hematocrit 44.3 % (37-47); Hemoglobin 14.8 g/dL (12.0-15.0); Mean Corp Hgb Conc 33.4 g/dL (32-36); Mean Corpuscular Volume 89.7 fL (81-99); Mean Platelet Vol. 9.4 fl (6.2-12.0); Platelet Count 413 K/mm3 (150-450); RBC Distribution Width CV 12.9 % (11.6-14.6); RBC Distribution Width SD 42.1 fl (35.1-43.9); Red Blood Count 4.94 M/mm3 (4.2-5.4); White Blood Count 10.1 K/mm3 (4.4-11.0)
--- NOTE | 2023-07-31 09:23 | HP.PCM_ITS ---
History and Physical Date of Admission: 07/31/23 Intake Vital Signs 05/25/2309:02 07/23/2412:24 07/23/2412:26 Height 5 ft 5 in 5 ft 5 in 5 ft 5 in Weight: 181 lb 4 oz BMI 30.1 BP 149/93 H Intake Visit Reasons: D&C polypectomy, IUD insert Support Services Specialist Required: No Is patient in pain?: No Allergies rifampin Allergy (Verified 07/23/23 13:24) Itching Medications lisinopril 5 mg tablet (Prinivil) 5 mg PO DAILY 08/26/16 [History Confirmed 07/23/23] norethindrone acetate 5 mg tablet 5 mg PO .COMPLEX #45 tabs 07/23/23 [Rx Confirmed 07/23/23] Post menopausal: No Patient : No : No PFSH Medical History Anemia Hypertension Leg cramps Smoker Tobacco use disorder Surgical History History of History of hysteroscopy History of tonsillectomy and adenoidectomy Family History Mother Heart disease CVA (cerebral vascular accident) Social History household members: spouse number of children: 2 current occupational status: employed current occupation: [employer] Smoking Status: Current some day smoker tobacco type: cigarettes alcohol intake: never substance use type: does not use seatbelt use: always do you feel safe at home: Yes additional social history: - Jadon- Unemployed HPI D&C polypectomy, IUD insert Details: NEDRA LIZARRAGA is a 48 year old who presents for new patient for prolonged menses. Menses has been ongoing for 23 days. Seen in ED 04/23 and given 5 tablets of aygestin that did not help, but higher doses stopped her bleeding now. States had same situation 6-8 years ago, and was seen at [facility] and had IUD placed. Had no bleeding with IUD. Removed 2 years ago and until this month has had normal regular menses. She had a biopsy with Ne recently that showed simple hyperplasia without atypia. Ultrasound shows an 11.7 mm lining with polyp present. She has worsening right lower quadrant pelvic pain recently and the last us did show a small 2 cm cyst. Her insurance will be up at the end of July. History 2 Elective abortions Hx Para 2 Spontaneous abortions Hx # Term Pregnancies Ectopic pregnancies Hx # Pregnancies Multiple births # of living children 2 Past Pregnancies Del. Date Name GA/Weeks Outcome Route Bth Weight Infant Gen Labor Lgth Anesthesia Del Locatn Provider FOB Unknown Radha 1995 Unknown Vanessa 2007 ROS Const ROS Unobtainable: All systems reviewed & are unremarkable except as noted in H Resp Resp: Reports system reviewed and no additional complaints, except as documented; Denies cough GI GI: Reports as per HPI Psych Psych: Reports system reviewed and no additional complaints, except as documented Exam Const General: cooperative, healthy appearing, comfortable and no acute distress Resp Effort & Inspection: normal respiratory effort Skin General: no rashes or lesions noted Psych Appearance: grossly normal Speech and Movement: speech and movement normal Coding Level of Care Code Off vis,est,level 4 Diagnoses Right lower quadrant abdominal pain R10.31 Endometrial thickening on ultrasound R93.89 Endometrial hyperplasia without atypia N85.00 Endocervical polyp N84.1 Abnormal uterine bleeding (AUB) N93.9 Assessment and Plan Assessment and Plan (1) Right lower quadrant abdominal pain: Status: Acute (2) Endometrial thickening on ultrasound: Status: Acute Comment: probable polyp noted (3) Endometrial hyperplasia without atypia: Status: Acute Comment: simple. Plan hysteroscopy, D&C w/symphion (4) Endocervical polyp: Status: Acute (5) Abnormal uterine bleeding (AUB): Status: Acute Orders: Orders Transvaginal w/Preg US Today R10.31 - Right lower quadrant pain Medications: Refilled norethindrone acetate take 1 tab tid until bleeding stops X 24 hours the take bid to finish RX 45 tabs 0RF Plan After discussing the patient's diagnosis and treatment plan options, patient wishes to proceed with surgical management. I have discussed with the patient the risks, benefits, and alternatives of the procedure which include but are not limited to risks of anesthesia, bleeding, infection, possible damage to bowel, bladder, or surrounding vasculature which could lead to additional surgery to evaluate any complications. Patient agrees to procedure and wishes to proceed. ACOG/uptodate references given for additional information regarding procedure. plan for hysteroscopy D&C polypectom with placement of IUD. will first perform rpt ultrasound
[2023-07-31 09:29] LABS: ALB/GLOB Ratio 0.8 RATIO (0.9-2.4); AST(SGOT) 20 U/L (15-37); Alanine Aminotransfer ALT/SGPT 24 U/L (13-56); Albumin, Serum 3.4 g/dL (3.2-5.0); Alkaline Phosphatase 79 U/L (45-117); Anion Gap 6 (5-15); BUN 13 mg/dL (7-18); BUN/Creat Ratio 17.6 RATIO (10-20); Calcium,Total 9.6 mg/dL (8.5-10.1); Chloride 105 mmol/L (98-107); Creatinine, Serum 0.74 mg/dL (0.55-1.02); EST Glomerular Filtration Rate 89 mL/min (>60); Est Glom Filt Rate - Afr Amer 108 mL/min (>60); Estimated Creatinine Clearance 98.89 ml/min; Globulin 4.3 g/dL (2.2-4.2); Glucose 253 mg/dL (74-106); Protein, Total 7.7 g/dL (6.4-8.2); Sodium Level 134 mmol/L (136-145)
--- NOTE | 2023-07-31 10:10 | EMB_PTH ---
PATHOLOGY RESULTS PATIENT: NEDRA LIZARRAGA LOC: [facility] [place] U#:[id number] AGE/SX: 48/F ROOM: RE07/31/[address]: Dr. Shantel Sorenson DO : 1975 BED: DIS: 07/31/2023 SPEC #: [id number] RECD: 07/31/23 12:10 STATUS: HARPAL LUIS #: [id number] DEEJAY: 07/31/23 10:[address]: Shantel Sorenson DEPT: SURGICAL PATHOLOGY RECD BY: Mae Rodriguez ENTERED: 07/31/23 12:11 SP TYPE: ENDOM BX/C GARRETT DR: No Primary Care Phys Tissues: Endometrium, NOS Procedures: Surgery Specimen Level IV HEADER OPERATION: Hysteroscopy, D & C Symphion, IUD insertion PRE-OP DIAGNOSIS: Right lower quadrant abdominal pain; endometrial thickening on ultrasound; endometrial hyperplasia; endocervical polyp, abnormal uterine bleeding TISSUE SUBMITTED: Endometrial curettings MICROSCOPIC DIAGNOSIS Endometrium, curettings: Weakly proliferative endometrium. Pseudodecidual change consistent with exogenous hormonal effect. Chronic endometritis. Rare strips of benign superficial endocervix. See comment. BELINDA:marissa 08/01/2023 COMMENT Sections show occasional plasma cells associated with frequent eosinophils. Reference is made to the patient's previous endometrial biopsy ([id number]) in which simple hyperplasia without atypia was identified. Case has been reviewed in consultation with Dr. Logan who concurs with the above diagnosis. IDC:BELINDA MICROSCOPIC DESCRIPTION Slides are reviewed. GROSS DESCRIPTION Received in fixative is one container labeled with the patient's name and designated endometrial curettings. The specimen consists of multiple fragments of hemorrhagic soft tissue that in aggregate measure 5.0 x 3.0 x 0.3 cm. The specimen is totally submitted in one cassette. / BELINDA:marissa 07/31/2023 TC: CPT: 84575
[2023-07-31] MEDS: Levonorgestrel IUD (Liletta) 1 EACH INTRA-UTER (10:12)
--- NOTE | 2023-07-31 10:15 | OP.PCM_ITS ---
Problems Associated Problem List Diagnoses (1) Endometrial thickening on ultrasound: (2) Endometrial hyperplasia without atypia: (3) Abnormal uterine bleeding (AUB): (4) Endocervical polyp: Report of Operation Date of Procedure: 07/31/23 Pre-Operative Diagnosis: endometrial hyperplasia, polyp on ultrasound, abnormal uterine bleeding Post-Operative Diagnosis: endometrial hyperplasia, polyp on ultrasound, abnormal uterine bleeding Surgery/Procedure Performed:: hysteroscopy dilation and curettage, placement of Intrauterine device Surgeon: Shantel Sorenson marking machine operator: None Type of Anesthesia: MAC Specimen's removed: endometrial curettings Drains: none Estimated Blood Loss (mL): 10cc Description of Procedure: Patient was prepped and draped in a normal sterile fashion under MAC anesthesia. A weighted speculum was placed in the vagina and the anterior lip of the cervix was grasped with a single-tooth tenaculum. Cervix was progressively dilated to allow passage of a 5 mm hysteroscope. The lining was fully visualized and noted to have thickened appearing tissue . Uterine sounded to 10 cm. Curettage was performed and the specimen was sent to pathology. The progesterone containing intrauterine device was inserted into the uterus to the fundus and the strings were trimmed to 3 cm from the cervix. All instruments were removed from the vagina and excellent hemostasis was noted. Patient was awoken and taken to recovery in stable condition. Procedure Start Time: 10:07 Procedure Stop Time: 10:15 Admit VTE Documentation VTE Present on Admission: No VTE Mechan Device Prophylaxis: SCD's VTE Pharm Prophylaxis ordered?: No Multi Select Codes Urinary/Genital Urinary/Genital CPT Codes: 58628 Hysteroscopy,EMC, Polypectomy and Other Procedure See Report (placement of intrauterine device )
--- NOTE | 2023-07-31 10:20 | DCINST_ITS ---
Discharge Instructions Diet Discharge Diet: No restrictions Activity Discharge Activity: Return to Normal Activity, May Shower and May Take a Tub Bath (after 1 week) May resume sexual activity in: 1-2 weeks Weight Bearing Status: Weight bearing as tolerated Lifting Restrictions: none Dressing / Incision Call your doctor if you observe: Fever of 101 or Higher, Using more than 1 pad per hour, Shortness of breath and Uncontrolled pain Follow Up Care Please Follow Up With: Shantel Sorenson DO When: Call [phone] to schedule appointment. Test Results: Test results from this visit will be discussed in further detail at your follow- up appointment, if applicable. Discharge Plan Admission Primary Reason for Your Visit: hysteroscopy dilation and curettage, placement of iud Attending Provider: Shantel Sorenson Primary Care Provider: Care Physician,Bertha Primary Discharge Orders/Prescriptions Prescriptions: New naproxen 500 mg tablet 500 mg PO BID PRN (Reason: pain) Qty: 30 0RF Continued lisinopril [Prinivil] 5 MG tablet 5 mg PO DAILY Discontinued norethindrone acetate 5 mg tablet 5 mg PO .COMPLEX Qty: 45 0RF Rx Instructions: take 1 tab tid until bleeding stops X 24 hours the take bid to finish RX Referrals / Follow Up: Care Physician,No Primary [Primary Care Provider] - Disposition Disposition (needs filled in before D/C Order can be placed): Home, Self Care
[2023-07-31 10:25] VITALS: BP 115/73; BP 135/89; PULSE 88; RESP 18; O2SAT 100; O2SAT 99
[2023-07-31 10:28] VITALS: BP 124/71; BP 135/89; PULSE 87; RESP 18; TEMP 36.7; O2SAT 98
[2023-07-31 10:30] VITALS: BP 103/75; BP 135/89; PULSE 92; RESP 18; O2SAT 100
[2023-07-31 10:35] VITALS: BP 116/76; BP 135/89; PULSE 92; RESP 18; TEMP 36.7; O2SAT 100
[2023-07-31 11:15] VITALS: BP 135/89
== END 2023-07-31 11:24 | disposition home or self-care (01) ==
LOC: SDC 08:23 → AC 08:24
PROVIDERS: Anesthesiology; Referring Provider Obstetrics & Gynecology; Visit Provider Obstetrics & Gynecology
PROC: 0UB98ZZ Excision of Uterus, Via Natural or Artificial Opening Endoscopic (ICD-10-PCS; CPT 58558; principal; 2023-07-31 09:55)
DX: N71.1 Chronic inflammatory disease of uterus (principal); N93.9 Abnormal uterine and vaginal bleeding, unspecified; N84.1 Polyp of cervix uteri; I10 Essential (primary) hypertension; F17.210 Nicotine dependence, cigarettes, uncomplicated; Z79.899 Other long term (current) drug therapy; Z30.430 Encounter for insertion of intrauterine contraceptive device
CPT/HCPCS: 58558; 58300; 00952; 80053; 81025; 85027; 86850; 86900; 86901; 88305; 93005; J7120; J2405

== ENCOUNTER 2024-03-20 02:35 | Emergency (ER) | payer SELFPAY ==
[2024-03-20 02:37] VITALS: BP 139/91; PULSE 99; RESP 16; TEMP 36.3; O2SAT 100; BMI 24.4
--- NOTE | 2024-03-20 02:51 | EDS_ITS ---
HPI History of Present Illness Chief Complaint: Allergic Reaction Detail of Chief Complaint: Bee sting right arm. Informant: patient Onset/Context/Timing Onset: Yesterday Context: Gradual Onset Timing: Continuous Current Severity: Mild Maximum Severity: Mild Narrative Narrative: 48-year-old female yesterday at 3 PM was stung on her right elbow by a bee. Has some mild swelling. Denies any other complaints. No trouble breathing or swallowing. No wheezing. No tongue or lip swelling. Prior similar symptoms: Yes Recent Illness/Hospitalization: No PFSH PFSH Medical History Right lower quadrant abdominal pain Anemia Smoker Leg cramps Endometrial thickening on ultrasound Endometrial hyperplasia without atypia Abnormal uterine bleeding (AUB) Hypertension Tobacco use disorder Home Medications ?Medication ?Instructions ?Recorded ?Last Taken ?Type lisinopril 5 mg tablet (Prinivil) 5 mg PO DAILY 08/26/16 07/31/23 History levonorgestrel 20.4 mcg/24 hr (up 1 device intrauterine ONCE 08/13/23 Unknown History to 8 yrs) 52 mg intrauterine device (Liletta) Allergy/AdvReac Type Severity Reaction Status Date / Time rifampin Allergy Itching Verified 03/20/24 02:41 Family History Mother Heart disease CVA (cerebral vascular accident) Surgical History Status post hysteroscopy (~07/31/23) History of hysteroscopy History of History of tonsillectomy and adenoidectomy Social History household members: spouse number of children: 2 current occupational status: employed current occupation: [employer] Smoking Status: Current some day smoker tobacco type: cigarettes alcohol intake: never substance use type: does not use seatbelt use: always do you feel safe at home: Yes additional social history: - Jadon- Unemployed ROS ROS ED ROS Narrative Denies recent illness. Constitutional Constitutional ED: Denies chills or fever(s) Eyes Eyes: Denies blurry vision ENT ENT ED: Denies ear pain Cardiovascular Cardiovascular: Denies chest pain Respiratory/Chest Respiratory/Chest: Denies cough or dyspnea Gastrointestinal Gastrointestinal: Denies abdominal pain Genitourinary Genitourinary ED: Denies dysuria or hematuria Musculoskeletal Musculoskeletal: Denies arthralgias or back pain Integumentary Denies abscess Neurologic Neurologic: Denies headache(s) Psychiatric Psychiatric: Denies anxiety or depression Hematologic/Lymphatic Hematologic/Lymphatic: Reports none Allergic/Immunologic Allergic/Immunologic ED: Denies mouth swelling, tongue swelling or urticaria EXAM Physical Exam Narrative Exam Narrative: Well-appearing female. No acute distress. Vital signs stable afebrile. Pulse ox 100% on room air no hypoxia. Sitting upright in bed. H EENT exam normal. No lip or tongue swelling. No trouble breathing or swallowing. Neck nontender. Lungs clear. Heart regular rhythm no murmur. Abdomen soft. Moving all 4 extremities. Right elbow medially there is a localized allergic reaction. No secondary infection. No lymphangitic streaking. Right hand is neurovascularly intact. There reaction is just an 2 square inches around the wound. No other rash or reaction anywhere else on her body. She is awake and alert. Const Vital Signs: 03/20/24 02:37 Temperature 97.4 F L Temperature Source Temporal Pulse Rate 99 Respiratory Rate 16 Blood Pressure 139/91 H Blood Pressure Mean 107 Pulse Ox 100 Oxygen Delivery Method Room Air Positive well nourished and well developed; Negative for cachectic, contractures or unkempt General Appearance ED: well developed and NAD; Negative for unkempt, cachectic, contractures, cyanotic or diaphoretic Nutritional Appearance: Negative for cachectic HEENT Reports moist mucous membranes Negative for trauma or tenderness Eyes PERRL and EOMs intact bilaterally General Eye ED: Negative for pale conjunctiva or scleral icterus Neck no lymphadenopathy, supple and no JVD General: Negative for tenderness Lymph Lymphatic: Negative for other Chest Wall inspection of chest normal and palpation of chest normal Resp normal respiratory effort and clear to auscultation bilaterally Effort and Inspection: Negative for retractions Auscultation: Negative for rales, rhonchi or wheezes Cardio regular rate, regular rhythm, S1 normal heart sound, S2 normal heart sound and no murmurs GI normal to inspection, nondistended, normoactive bowel sounds, non-tender, non- distended and no masses Palpation: soft; Negative for tender, guarding or rebound tenderness present Back/Spine no CVA tenderness Extremity normal to inspection Extremity Narrative: Local allergic reaction no bee sting right medial elbow. General Extremety ED: Yes edema and tenderness General Extremity: edema Neuro oriented x3 and CN's II-XII intact bilaterally Sensorium / Orientation: alert; Negative for orientation impaired, lethargic or stuporous Motor Exam: strength 5/5 throughout Psych mental status grossly normal Appearance: Negative for unkempt Skin No no rashes or lesions noted, no wounds and skin turgor normal Skin Narrative: Localized allergic reaction right medial elbow. Rashes: rashes noted MDM MDM MDM Narrative Medical decision making narrative: Patient had a bee sting yesterday at 3 PM local reaction now. She does not need steroids. Benadryl for reaction. Motrin for pain and swelling and reaction. Ice to the area. Elevate. History & Record Review Discussion w/independent historian: Patient Discharge Plan Triage Chief Complaint: Allergic Reaction ED Provider: Bennie Lima Dx/Rx/DC Orders Clinical Impression: Allergic reaction, Allergy to bee sting Instructions: ED Insect Sting, Local Reaction Prescriptions: No Action Liletta 20.4 mcg/24 hrs (8 yrs) 52 mg intrauterine device 1 device intrauterine ONCE Rx Instructions: as a single dose lisinopril [Prinivil] 5 MG tablet 5 mg PO DAILY Primary Care Provider: Care Physician,No Primary Referrals: Stoney Pedraza MD [Med Staff - Manager Channel] - As Needed Care Physician,No Primary [Primary Care Provider] - Activity Restrictions/Additional Instructions: This is a local allergic reaction to a bee sting. Ice to the area. Motrin for pain and swelling. Benadryl for the allergic reaction. Elevate your arm to decrease the swelling. Watch for any signs of infection. Keep the wound clean. This may get a little worse before gets better. Then it should progressively start improving. Print Language: Syriac Disposition Disposition: Home, Self Care
[2024-03-20 03:01] VITALS: BP 139/91; PULSE 88; RESP 16; TEMP 36.3; O2SAT 100
== END 2024-03-20 03:02 | disposition home or self-care (01) ==
PROVIDERS: Emergency Provider Emergency Medicine; Visit Provider Emergency Medicine
DX: T63.444A Toxic effect of venom of bees, undetermined, initial encounter (principal)
CPT/HCPCS: 99282

== ENCOUNTER 2024-04-28 19:18 | Emergency (ER) | payer SELFPAY ==
[2024-04-28 19:19] VITALS: BP 130/95; PULSE 103; RESP 18; TEMP 36.7; O2SAT 98; BMI 25.0
[2024-04-28 19:40] LABS: Mucous, Urine 0 SEEN /hpf (<or=2+); White Blood Cells 0 SEEN /hpf (0-5)
[2024-04-28 19:45] LABS: Color, Urine Yellow (Yellow); Glucose, Dipstick 1000 mg/dl (Normal); Ketone-Dipstick Negative (Negative); Leukocyte Esterase-Dipstick Negative /ul (Negative); Nitrite-Dipstick Negative (Negative); Occult Blood-Urine 250 /ul (Negative); Protein-Dipstick 30 mg/dl (Negative); Specific Gravity, Urine 1.025 (1.002-1.030); Urine Bilirubin Dipstick Negative (Negative); Urine Clarity Clear (Clear); Urine Urobilinogen Normal (Normal)
[2024-04-28 19:56] LABS: Bacteria 1+ /hpf (None Seen); Red Blood Cells-Urine 0-5 SEEN /hpf (0-5); Squamous Epithelial Cells - UA 0-5 SEEN /hpf (5-10)
--- NOTE | 2024-04-28 21:21 | ED.RN ---
CALLED PT'S NAME EARLIER TO START AN IV AND GOT NO RESPONSE. NOW CALLED TO GO BACK TO ROOM 20 AND NO RESPONSE.PT LWBS.
== END 2024-04-28 21:23 | disposition left against medical advice (07) ==
DX: Z53.21 Procedure and treatment not carried out due to patient leaving prior to being seen by health care provider (principal)
CPT/HCPCS: 81001

== ENCOUNTER 2024-04-29 10:48 | Emergency (ER) | payer SELFPAY ==
[2024-04-29 10:48] VITALS: BP 120/85; PULSE 99; RESP 18; TEMP 36.3; O2SAT 100; BMI 25.0
--- NOTE | 2024-04-29 11:40 | US_ITS ---
STUDY: ULTRASOUND OF THE FEMALE PELVIS - COMPLETE REASON FOR EXAM: Female, 48 years old. Right adnexal pain -- Possible ovarian torsion LMP: 2 weeks ago. TECHNIQUE: Transvaginal TECHNICAL QUALITY: Adequate. COMPARISON: Comparison is made with prior study dated May 08, 2023. FINDINGS: The uterus is anteverted and is in a midline position. The uterus measures 9.4 cm x 5.7 cm x 4.9 cm. Normal uterine cervix. The endometrium measures 3.7 mm in thickness, and is hyperechoic. There is no demonstrated endometrial mass. Heterogeneous appearance of the uterus. I suspect a 2 cm x 2.1 cm x 1.8 cm fibroid in the fundal portion of the uterus. I.U.D. - The patient does have an I.U.D. The right ovary is visualized. The right ovary measures 2 cm x 2.1 cm x 1.5 cm. There is no right ovarian cyst or ovarian mass. There is no visualized right adnexal mass or complex lesion. There is normal arterial and normal venous vascularity. The left ovary is visualized. The left ovary measures 3.4 cm x 2.2 cm x 1.8 cm. There is a 2.4 cm x 2 cm by 5 cm cyst in the left ovary. There is no visualized left adnexal mass or complex lesion. There is normal arterial and normal venous vascularity. There is no fluid in the cul-de-sac. US/Transvaginal Non- IMPRESSION: IUD is seen within the endometrium. Heterogeneous echotexture of the myometrium suggestive of a small uterine fibroid. 2.4 cm x 2 cm x 1.5 cm left ovarian cyst. Electronically Signed: Alirio Cole MD at 13:25 EDT ,
--- NOTE | 2024-04-29 11:42 | ED.VIS.FEGU ---
HPI HPI - Female History of Present Illness Chief Complaint: Female C/O Pain Pain: Positive for Pelvic Pain Onset: Weeks Context: Gradual Onset Timing: Continuous Quality: Positive for Cramping and Aching Location: RLQ Worsened by: Movement (Ambulation) Relieved by: Remaining Still (Bending forward) and NSAIDS (Naprosyn) Bleeding Issue: Positive for Vaginal bleeding Onset: Weeks Context: Gradual Onset Timing: Continuous Associated Symptoms Associated Symptoms: Negative for Dysuria or Frequency Control: IUD Narrative Narrative: Patient presents with vaginal bleeding that has been constant for the past 3 weeks. Patient states she started having some abdominal cramping that became worse today. Patient states it is mainly over the right adnexa. Patient states it is worse whenever she walks. Patient states Naprosyn seems to help with it. Patient states it is also better when she flexes forward and brings her knees up into her chest. Patient admits to some nausea but denies any vomiting. Patient recently had an IUD placed. Patient denies any dysuria or frequency. Patient is not passing any clots. PFSH PFS Medical History Right lower quadrant abdominal pain Anemia Smoker Leg cramps Endometrial thickening on ultrasound Endometrial hyperplasia without atypia Abnormal uterine bleeding (AUB) Hypertension Tobacco use disorder Home Medications ?Medication ?Instructions ?Recorded ?Last Taken ?Type lisinopril 5 mg tablet (Prinivil) 5 mg PO DAILY 08/26/16 07/31/23 History levonorgestrel 20.4 mcg/24 hr (up 1 device intrauterine ONCE 08/13/23 Unknown History to 8 yrs) 52 mg intrauterine device (Liletta) doxycycline monohydrate 100 mg 100 mg PO BID #20 CAPSULES 04/29/24 Unknown Rx capsule hydrocodone-acetaminophen 5-325mg 1 tab PO Q6H PRN PRN Pain 3 days 04/29/24 Unknown Rx 5mg-325mg #10 TABLETS Allergy/AdvReac Type Severity Reaction Status Date / Time rifampin Allergy Itching Verified 04/29/24 10:49 Family History Mother Heart disease CVA (cerebral vascular accident) Surgical History Status post hysteroscopy (~07/31/23) History of hysteroscopy History of History of tonsillectomy and adenoidectomy Social History household members: spouse number of children: 2 current occupational status: employed current occupation: [employer] Smoking Status: Current some day smoker tobacco type: cigarettes alcohol intake: never substance use type: does not use seatbelt use: always do you feel safe at home: Yes additional social history: - [place]- Unemployed ROS ROS ED Constitutional Constitutional ED: Denies chills or fever(s) Eyes Eyes: Denies blurry vision or change in vision ENT ENT ED: Denies rhinorrhea or sore throat Cardiovascular Cardiovascular: Denies chest pain or palpitations Respiratory/Chest Respiratory/Chest: Denies cough or dyspnea Gastrointestinal Gastrointestinal: Reports abdominal pain and nausea; Denies vomiting Genitourinary Genitourinary ED: Denies dysuria or hematuria Musculoskeletal Musculoskeletal: Denies back pain or neck pain Integumentary Denies abscess or rash Neurologic Neurologic: Denies headache(s) or weakness Allergic/Immunologic Allergic/Immunologic ED: Denies mouth swelling or urticaria EXAM Physical Exam Const Vital Signs: 04/29/24 10:48 04/29/24 13:33 Temperature 97.3 F L 97.3 F L Temperature Source Temporal Pulse Rate 99 76 Respiratory Rate 18 18 Blood Pressure 120/85 H 121/86 H Blood Pressure Mean 96 97 Pulse Ox 100 100 Oxygen Delivery Method Room Air Positive well nourished and well developed General Appearance ED: well developed and NAD Neck supple and no JVD Resp normal respiratory effort and clear to auscultation bilaterally GI soft to palpation and non-distended Palpation: tender RLQ and suprapubic; Negative for guarding Neuro oriented x3, CN's II-XII intact bilaterally and no sensory deficits noted Sensorium / Orientation: alert Motor Exam: strength 5/5 throughout Psych mental status grossly normal MDM MDM MDM Narrative Medical decision making narrative: Differential diagnosis includes ectopic , ovarian cyst, ovarian torsion, appendicitis, urinary tract infection, and mesenteric adenitis. CBC will be obtained to assess for leukocytosis and anemia. Basic metabolic profile will be obtained to assess for electrolyte abnormality and renal function. Serum hCG will be obtained to assess for . Urinalysis will be obtained to assess for urinary tract infection and hematuria. Transvaginal ultrasound will be obtained to assess for ectopic and ovarian torsion. Lab Data Attestation: I reviewed the patient's lab results. Lab results narrative: CBC was reviewed and was within normal limits. Basic metabolic profile was reviewed and was within normal limits with the exception of an elevated glucose of 351. Serum hCG was reviewed and was negative. Labs: Laboratory Results - last 24 hr 04/29/24 11:05 WBC 9.1 RBC 4.72 Hgb 14.8 Hct 43.4 MCV 91.9 MCH 31.4 MCHC 34.1 RDW Std Deviation 43.5 RDW Coeff of Inez 12.8 Plt Count 411 MPV 9.7 Immature Gran % (Auto) 0.200 Neut % (Auto) 60.5 Lymph % (Auto) 28.2 [place] % (Auto) 4.8 Eos % (Auto) 5.2 H Baso % (Auto) 1.1 H Absolute Neuts (auto) 5.5 Absolute Lymphs (auto) 2.55 Nucleated RBC % 0 Sodium 136 Potassium 3.7 Chloride 102 Carbon Dioxide 28.0 Anion Gap 6 BUN 18 Creatinine 0.74 Estim Creat Clear Calc 83.66 Est GFR (MDRD) Af Amer 108 Est GFR (MDRD) Non-Af 89 BUN/Creatinine Ratio 24.4 H Glucose 351 H Calcium 9.5 Serum , Qual NEGATIVE Radiography Diagnostic Testing: Clinical Impression(s) from Imaging Studies Transvaginal US 04/29/24 11:40 IMPRESSION: IUD is seen within the endometrium. Heterogeneous echotexture of the myometrium suggestive of a small uterine fibroid. 2.4 cm x 2 cm x 1.5 cm left ovarian cyst. Electronically Signed: Alirio Cole MD at 13:25 EDT , Pelvic ultrasound was obtained. There is an IUD within the endometrium. There is heterogeneous echotexture of the myometrium suggestive of a small uterine fibroid. There is a 2.4 x 2 cm x 1.5 cm left ovarian cyst. There is no evidence of torsion. This was interpreted by the radiologist was also independently reviewed by myself. Treatment and Re-Evaluation Narrative: Smoking cessation was discussed. Patient was ordered morphine and Zofran. Patient felt herself and then requested Toradol instead of morphine. This was ordered. Case was discussed with Dr. Gilliland. She recommended starting the patient on doxycycline to cover for endometritis. Patient was also given a prescription for a short course of [place]. Patient was instructed to follow-up with Dr. Gilliland in 3 to 5 days. Patient was instructed to return if worse in any way. Patient understood and was agreeable with the plan. All questions were answered. Discharge Plan Triage Chief Complaint: Female C/O ED Provider: Sami Liang Dx/Rx/DC Orders Clinical Impression: Pelvic pain, Tobacco use disorder Instructions: ED Pelvic Pain, Unknown Cause Prescriptions: New hydrocodone-acetaminophen 5-325 mg tablet 1 tab PO Q6H PRN PRN (Reason: Pain) 3 Days Qty: 10 0RF doxycycline monohydrate 100 mg capsule 100 mg PO BID Qty: 20 0RF No Action Liletta 20.4 mcg/24 hrs (8 yrs) 52 mg intrauterine device 1 device intrauterine ONCE Rx Instructions: as a single dose lisinopril [Prinivil] 5 MG tablet 5 mg PO DAILY Primary Care Provider: Care Physician,No Primary Referrals: Shantel Sorenson DO [Med Staff - Active Staff] - 3-5 Days Care Physician,No Primary [Primary Care Provider] - Print Language: Georgian Disposition Disposition: Home, Self Care Discharge Date/Time: 04/29/24 14:31
[2024-04-29] MEDS: Ondansetron 4 MG/2 ML Vial IV (11:48)
[2024-04-29 12:02] LABS: Internal QC Validated? YES +Cl - CLEAR BKGD; Pregnancy, Serum, hCG Quali. NEGATIVE Negative
[2024-04-29 12:04] LABS: Absolute Lymphocyte Count 2.55 X10^3/uL (0.83-4.51); Absolute Neutrophil Count 5.5 X10^3/uL (2.0-7.7); Basophil% 1.1 % (0-1); Eosinophil# 0.47 X10^3/uL; Eosinophils% 5.2 % (0-5); Hematocrit 43.4 % (37-47); Hemoglobin 14.8 g/dL (12.0-15.0); Lymphocyte # 2.55 X10^3/ul (0.83-4.51); Lymphocyte % 28.2 % (19-41); Mean Corp Hgb Conc 34.1 g/dL (32-36); Mean Corpuscular Hgb 31.4 pg (27.0-32.0); Mean Corpuscular Volume 91.9 fL (81-99); Mean Platelet Vol. 9.7 fl (6.2-12.0); Monocyte# 0.43 X10^3/uL; Monocyte% 4.8 % (0-10); NRBC Flagged by Analyzer 0 % (0-5); Neutrophil # 5.48 X10^3/uL (2.7-7.7); Neutrophil % 60.5 % (47-70); Platelet Count 411 K/mm3 (150-450); RBC Distribution Width CV 12.8 % (11.6-14.6); RBC Distribution Width SD 43.5 fl (35.1-43.9); Red Blood Count 4.72 M/mm3 (4.2-5.4); White Blood Count 9.1 K/mm3 (4.4-11.0)
--- NOTE | 2024-04-29 12:10 | ED.RN ---
pt had urine order completed yesterday
[2024-04-29 12:13] LABS: Anion Gap 6 (5-15); BUN 18 mg/dL (7-18); BUN/Creat Ratio 24.4 RATIO (10-20); Calcium,Total 9.5 mg/dL (8.5-10.1); Chloride 102 mmol/L (98-107); Creatinine, Serum 0.74 mg/dL (0.55-1.02); EST Glomerular Filtration Rate 89 mL/min (>60); Est Glom Filt Rate - Afr Amer 108 mL/min (>60); Estimated Creatinine Clearance 83.66 ml/min; Glucose 351 mg/dL (74-106); Potassium 3.7 mmol/L (3.5-5.1); Sodium Level 136 mmol/L (136-145)
[2024-04-29 13:33] VITALS: BP 121/86; PULSE 76; RESP 18; TEMP 36.3; O2SAT 100
[2024-04-29] MEDS: Doxycycline 100 MG CAPSULE PO (14:32)
== END 2024-04-29 14:31 | disposition home or self-care (01) ==
PROVIDERS: Emergency Provider Emergency Medicine; Visit Provider Emergency Medicine
DX: R10.2 Pelvic and perineal pain (principal); N93.9 Abnormal uterine and vaginal bleeding, unspecified; F17.210 Nicotine dependence, cigarettes, uncomplicated
CPT/HCPCS: 76830; 80048; 84703; 85025; 96374; 96376; 99283; A4216; J2405